=== PATIENT | female | born 1955 | race Caucasian/White ===

== ENCOUNTER 2018-03-19 14:43 | Emergency (ER) | payer OTHER ==
[~2018-03-19] VITALS: Ht 177.8 cm; Wt 115.7 kg
[2018-03-19] MEDS ORDERED: Wellbutrin Sr200 MG PO (14:49)
[2018-03-19] MEDS ORDERED: CITA20 PO (14:49)
[2018-03-19] MEDS ORDERED: LEVSOD100 PO (14:49)
[2018-03-19] MEDS ORDERED: CYCL10 PO (15:41)
== END 2018-03-19 15:45 | disposition home or self-care (01) ==
LOC: ER 14:43
DX: R51 Headache (principal); M25.512 Pain in left shoulder; M25.511 Pain in right shoulder; F41.9 Anxiety disorder, unspecified; E03.9 Hypothyroidism, unspecified; Z79.899 Other long term (current) drug therapy; V49.40XA Driver injured in collision with unspecified motor vehicles in traffic accident, initial encounter
CPT/HCPCS: 64405; 99283-25